=== PATIENT | male | born 1950 | race Two or more races ===

== ENCOUNTER 2017-03-26 17:23 | Emergency (ER) | payer OTHER ==
[~2017-03-26] VITALS: Ht 175.3 cm; Wt 63.0 kg
[2017-03-26 19:10] LABS: Albumin 3.7 g/dL (3.4-5.0); BUN/Creatinine Ratio 21.3; Bilirubin, Total 0.5 mg/dL (0.2-1.0); Potassium 3.6 mmol/L (3.5-5.1); Total Protein 6.7 g/dL (6.4-8.2)
[2017-03-26 19:15] LABS: Basophils # (auto) 0 uL; Basophils % (auto) 0.3 % (0.0-2.0); Eosinophils # (auto) 0.1 uL; Eosinophils % (auto) 3.3 % (0.0-7.0); Hematocrit 39.7 % (41.0-53.0); Hemoglobin 13.6 g/dL (13.5-17.5); Lymphocytes # (auto) 0.7 uL; Mean Corpuscular Hemoglobin 32.3 pg (28.0-32.0); Mean Corpuscular Hgb Conc. 34.3 g/dL (32.0-36.0); Mean Corpuscular Volume 94.3 fL (80.0-100.0); Mean Platelet Volume 7.1 fL (6.9-10.8); Monocytes # (auto) 0.3 uL; Monocytes % (auto) 9.7 % (0.0-12.0); Neutrophils # (auto) 2.2 uL; Neutrophils % (auto) 64.7 % (37.0-80.0); Nucleated Red Blood Cells % 0.2 %; Platelet Count (auto) 173 10^3/uL (140-450); Red Cell Distribution Width 14.2 % (11.8-14.3); White Blood Cell 3.4 10^3/uL (4.4-10.8)
[2017-03-26] MEDS ORDERED: SODIUM CHLORIDE 0.9% 1,000 ML IV ONE (20:00)
[2017-03-26 21:12] VITALS: BP 166/85
== END 2017-03-26 21:20 ==
LOC: ER 17:23
DX: E87.1 Hypo-osmolality and hyponatremia (principal)
CPT/HCPCS: 36415; 80053; 85025; 93005; 96360; 99285; J7030

== ENCOUNTER 2017-09-16 18:06 | Inpatient (IN) | payer OTHER ==
[~2017-09-16] VITALS: Ht 177.8 cm; Wt 68.8 kg
[2017-09-16] MEDS ORDERED: CHOL400C10 PO (18:31)
[2017-09-16] MEDS ORDERED: CALC500C66 PO (18:31)
[2017-09-16 19:38] LABS: Basophils # (auto) 0.1 uL; Basophils % (auto) 1.6 % (0.0-2.0); Eosinophils # (auto) 0.1 uL; Eosinophils % (auto) 3.4 % (0.0-7.0); Hematocrit 40.3 % (41.0-53.0); Hemoglobin 14.2 g/dL (13.5-17.5); Lymphocytes # (auto) 0.9 uL; Lymphocytes % (auto) 23.5 % (10.0-50.0); Mean Corpuscular Hemoglobin 32.7 pg (28.0-32.0); Mean Corpuscular Hgb Conc. 35.2 g/dL (32.0-36.0); Mean Corpuscular Volume 92.9 fL (80.0-100.0); Monocytes # (auto) 0.4 uL; Monocytes % (auto) 9.8 % (0.0-12.0); Neutrophils # (auto) 2.3 uL; Neutrophils % (auto) 61.7 % (37.0-80.0); Nucleated Red Blood Cells % 0.3 %; Platelet Count (auto) 187 10^3/uL (140-450); Red Blood Cells 4.34 10^6/uL (4.5-5.90); White Blood Cell 3.7 10^3/uL (4.4-10.8)
[2017-09-16 19:53] LABS: INR 0.97 (0.9-1.15); Partial Thromboplastin Time 27.5 sec (22.64-33.71); Prothrombin Time 10.6 sec (9.37-12.3)
[2017-09-16 19:57] LABS: Albumin 3.7 g/dL (3.4-5.0); BUN/Creatinine Ratio 21.9; Calcium 8.3 mg/dL (8.5-10.1); Potassium 4.4 mmol/L (3.5-5.1)
[2017-09-16 19:59] LABS: Bilirubin, Total 0.5 mg/dL (0.2-1.0); Total Protein 6.9 g/dL (6.4-8.2)
[2017-09-16] MEDS ORDERED: SODIUM BICARBONATE 650 MG TAB PO SCH (22:00)
[2017-09-16 22:07] VITALS: BP 146/83
[2017-09-16 22:31] LABS: Urine WBC None Seen /hpf (0 - 3)
[2017-09-16 22:41] LABS: Urine Bacteria NONE SEEN /hpf (None Seen); Urine Blood Negative /uL (Negative); Urine Specific Gravity 1.005 (1.001-1.035)
[2017-09-17 05:24] VITALS: BP 142/76
[2017-09-17 06:52] LABS: Albumin 3.7 g/dL (3.4-5.0); Bilirubin, Total 0.6 mg/dL (0.2-1.0); Calcium 8.2 mg/dL (8.5-10.1); Potassium 3.9 mmol/L (3.5-5.1); Total Protein 7.1 g/dL (6.4-8.2)
[2017-09-17] MEDS ORDERED: CALCIUM W/VIT D (600MG/400IU) TAB PO SCH (08:00)
[2017-09-17 10:23] VITALS: BP 157/91
[2017-09-17 13:00] VITALS: BP 146/81
[2017-09-17] MEDS ORDERED: GASTROGRAFIN 30 ML SOL ONE (13:59)
[2017-09-17] MEDS: CALCIUM W/VIT D (600MG/400IU) TAB PO SCH ×2 (15:19→16:56)
[2017-09-17] MEDS: SODIUM BICARBONATE 650 MG TAB PO SCH ×2 (15:20→22:24)
[2017-09-17 15:59] LABS: Free T3 3.32 pg/mL (2.3-4.2); Free T4 (Free Thyroxine) 1.25 ng/dL (0.89-1.76)
[2017-09-17] MEDS ORDERED: IOHEXOL 300 MG/ML 100ML BOTTLE IJ ONE (16:19)
[2017-09-17 16:34] VITALS: BP 124/68
[2017-09-17 21:44] VITALS: BP 140/78
[2017-09-18 04:36] VITALS: BP 130/75
[2017-09-18 08:31] VITALS: BP 135/79
[2017-09-18] MEDS: SODIUM BICARBONATE 650 MG TAB PO SCH ×2 (09:31→22:15)
[2017-09-18] MEDS: CALCIUM W/VIT D (600MG/400IU) TAB PO SCH ×2 (09:31→17:51)
[2017-09-18 12:32] VITALS: BP 130/68
[2017-09-18] MEDS ORDERED: ASPirin 81 mg TAB PO ONE (15:15)
[2017-09-18 17:12] VITALS: BP 150/73
[2017-09-18 22:00] VITALS: BP 124/61
[2017-09-19] MEDS ORDERED: HYDROcodone-ACET 10/325MG TAB ONE (04:54)
[2017-09-19 05:00] VITALS: BP 126/74
[2017-09-19 06:15] LABS: Basophils # (auto) 0 uL; Basophils % (auto) 0.7 % (0.0-2.0); Eosinophils # (auto) 0.2 uL; Eosinophils % (auto) 3.8 % (0.0-7.0); Hematocrit 43.6 % (41.0-53.0); Hemoglobin 15.1 g/dL (13.5-17.5); Lymphocytes # (auto) 1.1 uL; Lymphocytes % (auto) 20.1 % (10.0-50.0); Mean Corpuscular Hemoglobin 32.6 pg (28.0-32.0); Mean Corpuscular Hgb Conc. 34.6 g/dL (32.0-36.0); Mean Corpuscular Volume 94.1 fL (80.0-100.0); Monocytes # (auto) 0.4 uL; Monocytes % (auto) 8.1 % (0.0-12.0); Neutrophils # (auto) 3.6 uL; Neutrophils % (auto) 67.3 % (37.0-80.0); Nucleated Red Blood Cells % 0.1 %; Platelet Count (auto) 201 10^3/uL (140-450); Red Blood Cells 4.63 10^6/uL (4.5-5.90); Red Cell Distribution Width 14.3 % (11.8-14.3); White Blood Cell 5.4 10^3/uL (4.4-10.8)
[2017-09-19 06:49] LABS: BUN/Creatinine Ratio 22.2; Calcium 7.9 mg/dL (8.5-10.1); Potassium 4.9 mmol/L (3.5-5.1)
[2017-09-19 09:00] VITALS: BP 135/81
[2017-09-19] MEDS: SODIUM BICARBONATE 650 MG TAB PO SCH ×3 (09:34→22:00)
[2017-09-19] MEDS: ASPirin 81 mg TAB PO SCH (09:34)
[2017-09-19] MEDS: CALCIUM W/VIT D (600MG/400IU) TAB PO SCH ×2 (09:34→18:02)
[2017-09-19 13:00] VITALS: BP 153/77
[2017-09-19 17:13] VITALS: BP 125/73
[2017-09-19 22:00] VITALS: BP 111/64
[2017-09-20 05:00] VITALS: BP 119/76
[2017-09-20] MEDS: SODIUM BICARBONATE 650 MG TAB PO SCH ×2 (05:16→13:42)
[2017-09-20 07:47] LABS: BUN/Creatinine Ratio 22.7; Calcium 8.4 mg/dL (8.5-10.1); Potassium 4.4 mmol/L (3.5-5.1)
[2017-09-20] MEDS: CALCIUM W/VIT D (600MG/400IU) TAB PO SCH ×2 (08:00→18:00)
[2017-09-20 09:00] VITALS: BP 142/80
[2017-09-20] MEDS: ASPirin 81 mg TAB PO SCH (10:09)
[2017-09-20] MEDS ORDERED: SODI650T PO (11:36)
[2017-09-20 13:00] VITALS: BP 129/95
[2017-09-20 17:00] VITALS: BP 133/85
== END 2017-09-20 21:22 | DRG 918 ==
LOC: EEVIPCON 18:06 → TELE-E-ADS 18:06 → EAST 09-18 15:31
PROVIDERS: ADMIT Internal Medicine; ATTEND Internal Medicine
DX: T50.3X1A Poisoning by electrolytic, caloric and water-balance agents, accidental (unintentional), initial encounter (principal); E87.1 Hypo-osmolality and hyponatremia; F45.8 Other somatoform disorders; N40.0 Benign prostatic hyperplasia without lower urinary tract symptoms; Y92.89 Other specified places as the place of occurrence of the external cause
CPT/HCPCS: 36415; 70551; 71045; 74177; 80048; 80053; 81001; 82024; 82530; 82533; 83970; 84439; 84443; 84481; 85025; 85610; 85730; 93005

== ENCOUNTER 2019-07-22 06:04 | Day surgery (SDC) | payer OTHER ==
[~2019-07-22 06:04] MED LIST: CALC500C66 PO; CHOL400C10 PO; SODI650T PO
[2019-07-22 07:14] LABS: Basophils # (auto) 0.1 uL; Basophils % (auto) 1.1 % (0.0-2.0); Eosinophils # (auto) 0.2 uL; Eosinophils % (auto) 3.5 % (0.0-7.0); Hematocrit 46.3 % (41.0-53.0); Hemoglobin 15.8 g/dL (13.5-17.5); Lymphocytes # (auto) 0.9 uL; Lymphocytes % (auto) 19.5 % (10.0-50.0); Mean Corpuscular Hemoglobin 32.1 pg (28.0-32.0); Mean Corpuscular Hgb Conc. 34.1 g/dL (32.0-36.0); Mean Corpuscular Volume 94.1 fL (80.0-100.0); Monocytes # (auto) 0.3 uL; Monocytes % (auto) 6.6 % (0.0-12.0); Neutrophils # (auto) 3.3 uL; Neutrophils % (auto) 69.3 % (37.0-80.0); Nucleated Red Blood Cells % 0.1 %; Platelet Count (auto) 221 10^3/uL (140-450); Red Blood Cells 4.92 10^6/uL (4.5-5.90); White Blood Cell 4.8 10^3/uL (4.4-10.8)
[2019-07-22 07:36] LABS: INR 1.05 (0.9-1.15); Partial Thromboplastin Time 29.5 sec (23.64-32.05)
[2019-07-22] MEDS ORDERED: NALOXONE HCL 0.4 MG/ML VIAL ONE (08:16)
[2019-07-22] MEDS ORDERED: FLUMAZENIL 0.1 MG/ML INJ 10ML MDV IV ONE (08:16)
[2019-07-22] MEDS ORDERED: diphenhdrAMINE HCL 50 MG/1 ML VL ONE (08:17)
[2019-07-22] MEDS ORDERED: SODIUM CHLORIDE LOCK 10 ML ONE (08:17)
[2019-07-22] MEDS: MIDAZOLAM HCL 5 MG/ML-1ML VIAL ONE ×2 (09:11→09:14)
[2019-07-22] MEDS: fentaNYL CITRATE 100 MCG/2 ML VL ONE ×2 (09:11→09:14)
[2019-07-22 10:04] VITALS: BP 134/84
== END 2019-08-22 10:21 | disposition home or self-care (01) ==
LOC: GI 06:04
PROVIDERS: ATTEND Internal Medicine Gastroenterology
DX: R19.5 Other fecal abnormalities (principal); D12.3 Benign neoplasm of transverse colon; K57.30 Diverticulosis of large intestine without perforation or abscess without bleeding; K64.8 Other hemorrhoids
CPT/HCPCS: 36415; 45380; 85025; 85610; 85730; 88305; J1200; J2250; J3010; J7030; 99152